=== PATIENT | male | born 1955 | race Caucasian/White ===

== ENCOUNTER 2020-10-04 13:47 | Emergency (ER) | payer OTHER, SELFPAY ==
--- NOTE | ~2020-10-04 | XR_ITS ---
EXAMINATION: XR FOOT, LEFT CLINICAL INFORMATION: Lateral pain left foot. Injury x2 days COMPARISON: None TECHNIQUE: AP, lateral, and oblique views of the left foot. FINDINGS: There is an oblique distal fifth metatarsal fracture with mild displacement. There is moderate distal dorsal foot soft tissue swelling. No other bony abnormality seen. XR/XR foot LT min 3V IMPRESSION: Oblique distal fifth metatarsal fracture with mild displacement and moderate dorsal distal foot soft tissue swelling.
[2020-10-04 14:22] VITALS: BP 169/88; PULSE 65; RESP 16; TEMP 36.4; O2SAT 98; BMI 25.7
--- NOTE | 2020-10-04 14:39 | ED_ITS ---
HPI - Extremity Injury (Lower) General Chief Complaint: Extremity Injury, Lower Time Seen by Provider: 10/04/20 14:38 Source: patient Mode of arrival: ambulatory History of Present Illness HPI Narrative: 65-year-old male with a past medical history of BPH presenting to the ED complaining of left foot pain and swelling s/p rolling foot while walking on the stairs yesterday morning. Denies numbness, tingling, weakness, head trauma, LOC MD complaint: foot injury Related Data Previous Rx's Medication Instructions Recorded ibuprofen 600 mg tablet 600 mg PO Q8H PRN #14 tab 10/04/20 oxycodone-acetaminophen 5 mg-325 1 tab PO Q6H PRN 3 Days #9 tab 10/04/20 mg tablet (Percocet) Allergies Allergy/AdvReac Type Severity Reaction Status Date / Time No Known Allergies Allergy Verified 10/04/20 14:00 Review of Systems Review of Systems: Constitutional: No Fever, No Chills Cardiovascular: No Chest Pain, No SOB Respiratory: No Cough Musculoskeletal: + joint pain, No Myalgias, + Joint Swelling Skin: No Skin Lesions, No rash Neuro: No Weakness, No Numbness, No Paresthesias Yes all other systems are reviewed and are negative [facility] Past Medical History Attestation statement: The following information was validated with the patient. Medical History (Updated 10/04/20 @ 14:45 by GOPAL Ford) Enlarged prostate Social History Social History Advance Directives: No Advance Directives Information Provided: No Physical Exam Vital Signs: Vital Signs: Last Vital Signs Temp 97.6 F 10/04/20 14:22 Pulse 65 10/04/20 14:22 Resp 16 10/04/20 14:22 BP 169/88 H 10/04/20 14:22 Pulse Ox 98 10/04/20 14:22 Body Mass Index 25.7 Const: General: cooperative and healthy appearing Orientation/consciousness: patient oriented x3 Limitations: no limitations HENMT: Head: Yes normal to inspection Ears: hearing grossly normal bilaterally General nose exam: Normal external nose present Face and sinus: Yes normal facial exam Eyes: General: appearance normal, both eyes and all related structures EOM: EOMs intact bilaterally Neck: Neck: Yes normal visual inspection Resp: Effort & Inspection: normal respiratory effort and no respiratory distress Cardio: Rate: regular rate Peripheral pulses: dorsalis pedis present Skin: Rashes: no rashes Wounds: no wounds Neuro: General: patient oriented x3 Gait exam (Neuro): Normal gait present Extrem: Other: Left ankle WNL. Nontender Left foot with notable swelling > to lateral aspect. Tender to palpation. Sensation intact to light touch. Neurovascularly intact. Course Course Course Narrative: XR foot LT min 3V IMPRESSION: Oblique distal fifth metatarsal fracture with mild displacement and moderate dorsal distal foot soft tissue swelling. >> results discussed with patient. Patient placed in posterior short-leg splint and supplied with crutches is to be nonweightbearing and follow up with Orthopedics MDM - Extremity Injury (Lower) MDM Narrative Medical decision making narrative: 65-year-old male with a past medical history of BPH presenting to the ED complaining of left foot pain and swelling s/p rolling foot while walking on the stairs yesterday morning. On exam VSS, NAD, physical exam as above. Concern for fracture. Plan: X-ray Medical Records Attestation: I reviewed the patient's medical records. Lab Data Attestation: I reviewed the patient's lab results. Discharge Plan Discharge Clinical Impression: Closed fracture of fifth metatarsal bone Qualifiers: Encounter type: initial encounter Fracture alignment: displaced Laterality: left Qualified Code(s): S92.352A - Displaced fracture of fifth metatarsal bone, left foot, initial encounter for closed fracture Patient Disposition: Home, Self-Care Instructions: Foot Fracture in Adults (ED) Additional Instructions: KEEP SPLINT ON, DRY, AND CLEAN DO NOT PUT ANY WEIGHT ON YOUR LEFT LEG YOU NEED TO FOLLOW-UP WITH THE DRUG ABUSE PROGRAM COORDINATOR IN 3-5 DAYS ICE AND ELEVATE YOUR FOOT TAKE TYLENOL AND MOTRIN FOR PAIN AND SWELLING PERCOCET IS AN OPIATE PAIN MEDICATION, TAKE WHEN PAIN IS SEVERE FOR THE NEXT 3 DAYS BE AWARE PERCOCET HAS TYLENOL MIXED IN, DO NOT EXCEED 4G OF TYLENOL AND 1 DAY IF YOUR TOES BECOME NUMB, DISCOLORED, PAIN BECOMES UNBEARABLE REMOVE SPLINT AND RETURN TO THE ED IMMEDIATELY Prescriptions: New oxycodone-acetaminophen [Percocet] 5-325 mg tablet 1 tab PO Q6H PRN (Reason: pain, severe) 3 Days Qty: 9 RF: 0 ibuprofen 600 mg tablet 600 mg PO Q8H PRN (Reason: pain) Qty: 14 RF: 0 Referrals: Karen Crook PA-C [Physician [employer]] - 5 days Stand Alone Forms: Work/School Release
[2020-10-04] MEDS: Acetaminophen 325 MG TABLET 650 MG PO (15:01)
== END 2020-10-04 15:40 | disposition home or self-care (01) ==
LOC: HO.ED 13:47
PROVIDERS: Emergency Provider Emergency Medicine; PCP Internal Medicine; Visit Provider Physician Assistant
DX: S92.352A Displaced fracture of fifth metatarsal bone, left foot, initial encounter for closed fracture (principal); M79.672 Pain in left foot; X50.1XXA Overexertion from prolonged static or awkward postures, initial encounter; Y93.9 Activity, unspecified; Y92.9 Unspecified place or not applicable; Y99.9 Unspecified external cause status; Z79.899 Other long term (current) drug therapy
CPT/HCPCS: 29515; 73630; 99283

== ENCOUNTER 2021-02-03 12:59 | Observation (INO) | payer OTHER, SELFPAY ==
--- NOTE | 2021-02-03 | ECG_ITS ---
Test Reason : CHEST PAIN Blood Pressure : / mmHG Vent. Rate : 067 BPM Atrial Rate : 067 BPM P-R Int : 158 ms QRS Dur : 096 ms QT Int : 412 ms P-R-T Axes : 051 020 057 degrees QTc Int : 435 ms Normal sinus rhythm Normal ECG No previous ECGs available Referred By: Generic ED Physician Electronically Signed By:OSMIN SIMEON MD
--- NOTE | ~2021-02-03 | XR_ITS ---
EXAMINATION: XR CHEST CLINICAL INFORMATION: Dyspnea COMPARISON: None TECHNIQUE: Frontal view of the chest was obtained. FINDINGS: No significant abnormality is noted involving the heart, lungs, mediastinum, bony thorax or soft tissues. Left base atelectasis or scarring is present. XR/XR chest 1V IMPRESSION: No significant acute parenchymal disease.
[2021-02-03 13:29] VITALS: BP 138/84; PULSE 92; RESP 8; TEMP 36.6; O2SAT 96; BMI 26.7
--- NOTE | 2021-02-03 13:31 | ED_ITS ---
HPI - Chest Pain General Chief Complaint: Chest Pain Stated Complaint: chest pain Time Seen by Provider: 02/03/21 13:31 Source: patient Mode of arrival: ambulatory Limitations: no limitations History of Present Illness MD complaint: chest pain Pertinent past history: prior DC Onset (ago): day(s) (last night around 10pm) Timing of current episode: constant Prior episodes: No Onset: during rest Pain location: substernal Pain radiation: none Severity: mild Quality: aching and heaviness Relieving factors: nothing Exacerbating factors: nothing Associated symptoms: dyspnea Treatment prior to arrival: none Related Data Previous Rx's Medication Instructions Recorded ibuprofen 600 mg tablet 600 mg PO Q8H PRN #14 tab 10/04/20 oxycodone-acetaminophen 5 mg-325 1 tab PO Q6H PRN 3 Days #9 tab 10/04/20 mg tablet (Percocet) Allergies Allergy/AdvReac Type Severity Reaction Status Date / Time No Known Allergies Allergy Verified 10/04/20 14:00 Review of Systems Review of Systems: Constitutional : No Weight loss, No Fever, No Chills ENT/Mouth : No sore throat, No Rhinorrhea Eyes: No Eye Pain, No Swelling Cardiovascular : pos Chest Pain, pos SOB, no Dyspnea on Exertion, No Orthopnea, No Edema, No Palpitations Respiratory : No Cough, No Sputum Gastrointestinal : no Nausea, No Vomiting, No Diarrhea, No abdominal Pain, No Hematochezia, No Melena Genitourinary : No Dysuria, No Urinary Frequency Musculoskeletal : No joint pain, No Myalgias, No Joint Swelling Skin : No Skin Lesions, No rash Neuro : No Weakness, No Numbness, No Dizziness, No Headache Psych : No Anxiety/Panic, No Depression Heme/Lymph: No Bruising, No Lymphadenopathy Endocrine : No Polyuria, No Polydipsia All other systems reviewed and are negative PMFSH Past Medical History Medical History Enlarged prostate Hyperlipidemia Myocardial infarction Social History Social History (Updated 02/03/21 @ 14:16 by Niki Maria DO) Patient Tobacco Use Status: Never used Tobacco Use of substances other than those prescribed or required for medical reasons: No Advance Directives: No Advance Directives Information Provided: No Physical Exam Vital Signs: Vital Signs: Last Vital Signs Temp 98 F 02/03/21 13:29 Pulse 68 02/03/21 14:30 Resp 16 02/03/21 14:30 BP 143/85 H 02/03/21 14:30 Pulse Ox 96 02/03/21 14:30 BMI result Body Mass Index 26.7 Appearance: Alert. Oriented X3. No acute distress. Eyes: Pupils equal, round and reactive to light. ENT: Pharynx normal. Neck: Normal inspection. Neck supple. CVS: Normal heart rate and rhythm. Pulses normal. Respiratory: No respiratory distress. Breath sounds slightly diminished. Abdomen: Soft and non-tender. Skin: Skin warm and dry. Normal skin color. Normal skin turgor. Extremities: No lower extremity edema. No calf ttp Neuro: Oriented X 3. No motor deficit. No sensory deficit. Course Course Course Narrative: repeat troponin pending - 430pm nitro resolved pain. Dr. Lin notified signed out to Georges HERRON pending repeat troponin, plan is for admission MDM - Chest Pain MDM Narrative Medical decision making narrative: 65 yo male with hx of HLD, asthma, prior DC at age 38 did not require stenting here with shortness of breath, chest pain since last night - his daughter in law has COVID but he does not think he was exposed. At this time troponin, EKG, ddimer, CXR ordered, aspirin and nitro for chest discomfort. Could be PE, ACS, COVID. dispo per results and findings Lab Data Result diagrams: 02/03/21 14:26 02/03/21 14:26 Labs: Lab Results 02/03/21 02/03/21 02/03/21 Range/Units 14:06 14:26 14:26 WBC 6.8 (4.8-10.8) X10*3/uL RBC 5.19 (4.60-5.80) X10*6/uL Hgb 15.1 (14.0-18.0) g/dl Hct 45.8 (42.0-52.0) % MCV 88.2 (80.0-98.0) fL MCH 29.1 (27.0-33.0) pg MCHC 33.0 (31.0-36.0) g/dl RDW 12.8 (11.0-16.0) % Plt Count 222 (160-400) X10*3/uL MPV 10.3 (9.4-12.4) fL Immature Gran % (Auto) 0.4 (0.0-0.4) % Neut % (Auto) 72.6 (45-73) % Lymph % (Auto) 15.8 L (20-40) % [place] % (Auto) 6.4 (2-11) % Eos % (Auto) 4.2 H (0-4) % Baso % (Auto) 0.6 (0-2) % Lymph # (Auto) 1.1 L (1.2-4.9) X10*3/uL [place] # (Auto) 0.4 (0.1-1.2) X10*3/uL Eos # (Auto) 0.3 (0.0-0.4) X10*3/uL Baso # (Auto) 0.0 (0.0-0.2) X10*3/uL Abs Immat Gran (auto) 0.03 (0.00-0.03) X10*3/uL Absolute Neuts (auto) 5.0 (2.0-8.3) x10*3/uL Absolute Nucleated RBC 0.000 (0.0-0.012) X10*3/uL Nucleated RBC % (auto) 0.0 (0.0-0.2) /100WBC D-Dimer High Sensitivty 216 NG/ML Sodium (135-145) mmol/L Potassium (3.3-5.1) mmol/L Chloride (96-108) mmol/L Carbon Dioxide (22-29) mmol/L Anion Gap (12-20) BUN (9-16) mg/dL Creatinine (0.5-1.4) mg/dL Estim Creat Clear Calc Estimated GFR Random Glucose (60-115) mg/dL Calcium (8.4-10.2) mg/dL Magnesium (1.6-2.6) mg/dL Total Bilirubin (0.0-1.0) mg/dL Direct Bilirubin (0.0-0.5) mg/dL AST (5-37) U/L ALT (0-40) U/L Alkaline Phosphatase (39-117) U/L Troponin I High Sens (<3.5-35.0) ng/L B-Natriuretic Peptide (<100) pg/mL Total Protein (6.5-8.0) g/dL Albumin (3.5-5.0) g/dL Influenza Type A (PCR) NEGATIVE (Negative) Influenza Type B (PCR) NEGATIVE (Negative) RSV RNA Qual (PCR) NEGATIVE (Negative) SARS-CoV-2 RNA (RT-PCR) NEGATIVE (Negative) 02/03/21 02/03/21 Range/Units 14:26 14:26 WBC (4.8-10.8) X10*3/uL RBC (4.60-5.80) X10*6/uL Hgb (14.0-18.0) g/dl Hct (42.0-52.0) % MCV (80.0-98.0) fL MCH (27.0-33.0) pg MCHC (31.0-36.0) g/dl RDW (11.0-16.0) % Plt Count (160-400) X10*3/uL MPV (9.4-12.4) fL Immature Gran % (Auto) (0.0-0.4) % Neut % (Auto) (45-73) % Lymph % (Auto) (20-40) % [place] % (Auto) (2-11) % Eos % (Auto) (0-4) % Baso % (Auto) (0-2) % Lymph # (Auto) (1.2-4.9) X10*3/uL [place] # (Auto) (0.1-1.2) X10*3/uL Eos # (Auto) (0.0-0.4) X10*3/uL Baso # (Auto) (0.0-0.2) X10*3/uL Abs Immat Gran (auto) (0.00-0.03) X10*3/uL Absolute Neuts (auto) (2.0-8.3) x10*3/uL Absolute Nucleated RBC (0.0-0.012) X10*3/uL Nucleated RBC % (auto) (0.0-0.2) /100WBC D-Dimer High Sensitivty NG/ML Sodium 141 (135-145) mmol/L Potassium 4.6 (3.3-5.1) mmol/L Chloride 106 (96-108) mmol/L Carbon Dioxide 26 (22-29) mmol/L Anion Gap 14 (12-20) BUN 15 (9-16) mg/dL Creatinine 0.84 (0.5-1.4) mg/dL Estim Creat Clear Calc 90.8 Estimated GFR > 60 Random Glucose 88 (60-115) mg/dL Calcium 9.3 (8.4-10.2) mg/dL Magnesium 2.1 (1.6-2.6) mg/dL Total Bilirubin 0.5 (0.0-1.0) mg/dL Direct Bilirubin 0.2 (0.0-0.5) mg/dL AST 35 (5-37) U/L ALT 42 H (0-40) U/L Alkaline Phosphatase 74 (39-117) U/L Troponin I High Sens < 3.5 (<3.5-35.0) ng/L B-Natriuretic Peptide 24 (<100) pg/mL Total Protein 7.1 (6.5-8.0) g/dL Albumin 4.3 (3.5-5.0) g/dL Influenza Type A (PCR) (Negative) Influenza Type B (PCR) (Negative) RSV RNA Qual (PCR) (Negative) SARS-CoV-2 RNA (RT-PCR) (Negative) ECG Data ECG #1: Attestation: I personally reviewed and interpreted this ECG as follows: ECG interpretation date: 02/03/21 ECG interpretation time: 13:33 Interpretation: Rate: 67 Rhythm: NSR [place]: normal Normal P waves. Normal DOC. Normal QRS complex. ST T wave : normal no STELLA qTC: normal prior studies: no acute ischemia The study has been interpreted contemporaneously by me. Discharge Plan Discharge Clinical Impression: Chest pain Qualifiers: Chest pain type: precordial pain Qualified Code(s): R07.2 - Precordial pain Patient Disposition: Admitted As Inpatient
[2021-02-03] MEDS: Nitroglycerin 0.4 MG TAB.SUBL SUBLINGUAL (14:27)
[2021-02-03] MEDS: 0.9 % Sodium Chloride 500 ML IV (14:28)
[2021-02-03] MEDS: Aspirin 81 MG TAB.CHEW PO (14:28)
[2021-02-03 14:30] VITALS: BP 143/85; PULSE 68; RESP 16; O2SAT 96
[2021-02-03 14:37] LABS: MANUAL DIFF FLAG NO
[2021-02-03 14:38] LABS: Basophils Percent Auto 0.6 % (0-2); Eosinophils Absolute Auto 0.3 X10*3/uL (0.0-0.4); Eosinophils Percent Auto 4.2 % (0-4); Hematocrit 45.8 % (42.0-52.0); Hemoglobin 15.1 g/dl (14.0-18.0); Imm Gran Abs Auto 0.03 X10*3/uL (0.00-0.03); Imm Gran Pct Auto 0.4 % (0.0-0.4); Lymphocytes Absolute Auto 1.1 X10*3/uL (1.2-4.9); Lymphocytes Percent Auto 15.8 % (20-40); Mean Corpuscular Hemoglobin 29.1 pg (27.0-33.0); Mean Corpuscular Volume 88.2 fL (80.0-98.0); Mean Platelet Volume 10.3 fL (9.4-12.4); Monocytes Absolute Auto 0.4 X10*3/uL (0.1-1.2); Monocytes Percent Auto 6.4 % (2-11); Neutrophils Percent Auto 72.6 % (45-73); Platelet Count 222 X10*3/uL (160-400); Red Blood Count 5.19 X10*6/uL (4.60-5.80); Red Cell Distribution Width 12.8 % (11.0-16.0); White Blood Count 6.8 X10*3/uL (4.8-10.8)
[2021-02-03 14:54] LABS: D Dimer High Sensitivity 216 NG/ML
[2021-02-03 15:06] LABS: B Type Natriuretic Peptide 24 pg/mL (<100); Troponin-I High Sensitivity < 3.5 ng/L (<3.5-35.0)
[2021-02-03 15:10] LABS: Influenza A PCR NEGATIVE (Negative); Influenza B PCR NEGATIVE (Negative); Resp Syncy Virus RNA Qual PCR NEGATIVE (Negative); SARS COV2 PCR INHOUSE NEGATIVE (Negative)
[2021-02-03 15:11] LABS: Alanine Aminotransferase 42 U/L (0-40); Albumin Level 4.3 g/dL (3.5-5.0); Alkaline Phosphatase 74 U/L (39-117); Anion Gap 14 (12-20); Aspartate Amino Transferase 35 U/L (5-37); Bilirubin Direct 0.2 mg/dL (0.0-0.5); Bilirubin Total 0.5 mg/dL (0.0-1.0); Blood Urea Nitrogen 15 mg/dL (9-16); Calcium 9.3 mg/dL (8.4-10.2); Carbon Dioxide 26 mmol/L (22-29); Chloride 106 mmol/L (96-108); Creatinine Clr Calc Pharmacy 90.8; Estimated Glomerular Filt Rate > 60; Glucose Random 88 mg/dL (60-115); Magnesium 2.1 mg/dL (1.6-2.6); Potassium 4.6 mmol/L (3.3-5.1); Sodium 141 mmol/L (135-145); Total Protein 7.1 g/dL (6.5-8.0)
[2021-02-03 16:45] VITALS: BP 154/92; PULSE 65; RESP 14; TEMP 36.6; O2SAT 98
[2021-02-03 17:44] LABS: Troponin-I High Sensitivity < 3.5 ng/L (<3.5-35.0)
--- NOTE | 2021-02-03 18:43 | P.HPHOSP_ITS ---
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 The chest discomfort was burning in nature like my chest was on fire but not associated with diaphoresis and not radiating. It was moderate in intensity and not at all like the chrushing chest pain he experienced with his prior MN, but also not at all like his episodes of esophageal spasm. No acid reflux, though he has suffered this in the past. He was able to go back to sleep and when he next awoke around 3am, the pain was around 3/10 in intensity. He had a dull ache all day in his chest and decided to present to the ED, where he was given nitroglycerin with near-complete relief of his pain. 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 He last had a stress test some 5 years ago. 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 In the ED, EKG showed normal sinus rhythm with no ischemic changes. D-dimer was 216. High-sensitivity troponin-I was negative twice. BNP was 24. CXR was negative for acute disease. Review of Systems Review of Systems: Yes all other systems are reviewed and are negative [facility] Medical History (Updated 02/03/21 @ 18:50 by Guillermo Rondon MD) Enlarged prostate Esophageal spasm Hyperlipidemia Myocardial infarction Severe persistent allergic asthma Functional capacity: independent ambulation Pertinent family history: Negative for CAD, CVA, or DM2. Both parents lived into their 90s. Surgical History (Updated 02/03/21 @ 18:50 by Guillermo Rondon MD) History of cystoscopy Status post tendon repair Social History Patient Tobacco Use Status: Never used Tobacco Use of substances other than those prescribed or required for medical reasons: No Advance Directives: No Advance Directives Information Provided: No Meds Allergies Allergy/AdvReac Type Severity Reaction Status Date / Time No Known Allergies Allergy Verified 10/04/20 14:00 Active Medications: Current Medications Acetaminophen (Acetaminophen 325 Mg Tablet) 650 mg PO Q6H PRN PRN Reason: Pain, Mild (Pain Scale 1-3) Aspirin (Aspirin 81 Mg Tab.Chew) 81 mg PO DAILY [facility] Atorvastatin Calcium (Atorvastatin Calcium 80 Mg Tablet) 80 mg PO BEDTIME [facility] Enoxaparin Sodium (Enoxaparin Sodium 40 Mg/0.4 Ml Syringe) 40 mg SUBCUT Q24H [facility] Morphine Sulfate (Morphine Sulfate 2 Mg/Ml Cartridge) 2 mg IVPUSH Q2H PRN; Protocol PRN Reason: severe pain Nitroglycerin (Nitroglycerin 0.4 Mg Tab.Subl) 0.4 mg SUBLINGUAL Q5MX3 PRN PRN Reason: Chest Pain Ondansetron HCl (Ondansetron Hcl 4 Mg/2 Ml Vial) 4 mg IVPUSH Q8H PRN PRN Reason: nausea/vomiting Pharmacy Consult (Consult Rx Perform Med Rec) 1 each MISCELLANE STAT STA Stop: 02/03/21 17:59 Sodium Chloride (0.9 % Sodium Chloride Flush 3 Ml Syringe) 3 ml IVFLUSH QSHIFT [facility] Home Medications Medication Instructions Recorded Confirmed Last Taken Type ascorbic acid (vitamin C) 500 mg 500 mg PO DAILY 02/03/21 02/03/21 01/31/21 History tablet (Vitamin C) cholecalciferol (vitamin D3) 50 2,000 mcg PO DAILY 02/03/21 02/03/21 01/31/21 History mcg (2,000 unit) capsule (Vitamin D3) dupilumab 300 mg/2 mL subcutaneous 300 mg SUBCUT Q2W 02/03/21 02/03/21 01/31/21 History syringe (Dupixent) finasteride 5 mg tablet 1 tab PO DAILY 02/03/21 02/03/21 Unknown History multivitamin 1 tab PO DAILY 02/03/21 02/03/21 01/31/21 History tadalafil 5 mg tablet 5 mg PO DAILY 02/03/21 02/03/21 01/31/21 History Physical Exam Vital Signs and Narrative: Vital Signs: Last Vital Signs Temp 98 F 02/03/21 16:45 Pulse 65 02/03/21 16:45 Resp 14 02/03/21 16:45 BP 154/92 H 02/03/21 16:45 Pulse Ox 98 02/03/21 16:45 BMI result Body Mass Index 26.7 Gen: in no acute distress HEENT: sclera anicteric, moist mucus membranes Neck: supple Lungs: clear to auscultation bilaterally Heart: regular rate and rhythm, no murmurs Abd: soft, non-tender, non-distended Ext: no edema Skin: warm/well-perfused Neuro: alert and oriented x3, no focal findings Psych: appropriate affect Results Labs CBC and Chem 7: 02/03/21 14:26 02/03/21 14:26 Labs: Laboratory Results - last 24 hr 02/03/21 02/03/21 02/03/21 14:06 14:26 14:26 MCV 88.2 MCH 29.1 MCHC 33.0 RDW 12.8 Plt Count 222 MPV 10.3 Immature Gran % (Auto) 0.4 Neut % (Auto) 72.6 Lymph % (Auto) 15.8 L [place] % (Auto) 6.4 Eos % (Auto) 4.2 H Baso % (Auto) 0.6 Lymph # (Auto) 1.1 L [place] # (Auto) 0.4 Eos # (Auto) 0.3 Baso # (Auto) 0.0 Abs Immat Gran (auto) 0.03 Absolute Neuts (auto) 5.0 Absolute Nucleated RBC 0.000 Nucleated RBC % (auto) 0.0 D-Dimer High Sensitivty 216 Anion Gap Estim Creat Clear Calc Estimated GFR Random Glucose Calcium Magnesium Total Bilirubin Direct Bilirubin AST ALT Alkaline Phosphatase Troponin I High Sens B-Natriuretic Peptide Total Protein Albumin Influenza Type A (PCR) NEGATIVE Influenza Type B (PCR) NEGATIVE RSV RNA Qual (PCR) NEGATIVE SARS-CoV-2 RNA (RT-PCR) NEGATIVE 02/03/21 02/03/21 02/03/21 14:26 14:26 16:44 MCV MCH MCHC RDW Plt Count MPV Immature Gran % (Auto) Neut % (Auto) Lymph % (Auto) [place] % (Auto) Eos % (Auto) Baso % (Auto) Lymph # (Auto) [place] # (Auto) Eos # (Auto) Baso # (Auto) Abs Immat Gran (auto) Absolute Neuts (auto) Absolute Nucleated RBC Nucleated RBC % (auto) D-Dimer High Sensitivty Anion Gap 14 Estim Creat Clear Calc 90.8 Estimated GFR > 60 Random Glucose 88 Calcium 9.3 Magnesium 2.1 Total Bilirubin 0.5 Direct Bilirubin 0.2 AST 35 ALT 42 H Alkaline Phosphatase 74 Troponin I High Sens < 3.5 < 3.5 B-Natriuretic Peptide 24 Total Protein 7.1 Albumin 4.3 Influenza Type A (PCR) Influenza Type B (PCR) RSV RNA Qual (PCR) SARS-CoV-2 RNA (RT-PCR) Imaging Radiologist's Impressions: Impressions Chest X-Ray 02/03/21 14:00 IMPRESSION: No significant acute parenchymal disease. 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 No EKG changes and troponin-I x2 negative - admit to [facility] under observation, Cardiology consult, ASA/high-intensity statin, TTE, to consider inpt stress testing given risk factors - other medical issues: CPAP for POP, finasteride for BPH - LMWH for VTE ppx Quality Stroke Does the patient have a stroke diagnosis?: No VTE Prior VTE?: No VTE Risk Level:: Medical - moderate - high VTE Device Contraindication: N/A - Device Ordered VTE Drug Contraindication: N/A - Med Ordered
[2021-02-03 19:08] VITALS: BP 142/79; PULSE 74; RESP 16; TEMP 36.8; O2SAT 97
--- NOTE | 2021-02-03 19:28 | PHA.MEDREC ---
Pharmacy Consult ? Medication Reconciliation Pharmacy has completed the medication reconciliation.
[2021-02-03 20:00] VITALS: BP 136/82; PULSE 76; RESP 14; TEMP 36.8; O2SAT 98
--- NOTE | 2021-02-03 20:40 | PC.NURSE ---
Patient complained of pain in his left ear which radiated down into his neck
[2021-02-03] MEDS: Acetaminophen 325 MG TABLET 650 MG PO (20:53)
[2021-02-03] MEDS: Atorvastatin Calcium 80 MG TABLET PO (20:53)
[2021-02-03] MEDS: Enoxaparin Sodium 40 MG/0.4 ML SYRINGE SUBCUT (20:54)
[2021-02-04 01:08] VITALS: BP 137/84; PULSE 72; RESP 16; TEMP 36.4; O2SAT 98
--- NOTE | 2021-02-04 07:30 | CA_ITS ---
Transthoracic Echocardiogram Patient (Last, First, Middle): Luis Davis, Gender: Male Date of : 1955 Age: 65 Procedure Date: 02/04/2021 Procedure Type: Transthoracic Echocardiogram Location: ER Height: 180.34 cm Weight: 87.09 kg BSA: 2.07 m2 Heart Rate: bpm BP: 137 / 84 mmHg Clock And Watch Hands Dipper: JANI Kaufman MD: Guillermo Rondon MD Bleach Packer: Herminio Lin MD Symptoms: chest pain Study Quality: Fair ECG Rhythm: Sinus Conclusions: - 1. Normal LV systolic function with grade 1 diastolic dysfunction with underlying wall motion abnormality suggestive of CAD 2. Normal cardiac valvular Doppler 3. Normal RV systolic pressure 4. No pericardial effusion Findings Left Ventricle Normal left ventricular size, thickness, and systolic function. There is evidence of regional wall motion abnormalities. Spectral Doppler is indicative of an impaired relaxation filling pattern. E/E prime ratio is <8, consistent with normal filling pressures. Evidence suggests grade I (mild) diastolic dysfunction. There is mild septal asymmetric hypertrophy. Wall Motion Rest Echo Findings The basal anterolateral and basal inferolateral segments are akinetic. All other scored wall segments showed normal motion. Right Ventricle Normal right ventricular cavity size and systolic function. Atria The left atrium is likely dilated. Interatrial shunt cannot be excluded. The right atrium is normal in size. Aortic Valve Normal aortic valve structure and function. There is no aortic valve stenosis. There is no aortic valve regurgitation. Mitral Valve Normal mitral valve structure and function. There is trace mitral valve regurgitation. There is no mitral valve stenosis. Pulmonic Valve The pulmonic valve was not well visualized. Tricuspid Valve Likely normal tricuspid valve structure and function. There is trace tricuspid valve regurgitation. The right ventricular systolic pressure is normal. The right ventricular systolic pressure is 25 mmHg. Normal right atrial pressure. There is no evidence of pulmonary hypertension. Great Vessels All visible segments of the aorta are normal in size. The pulmonary artery was not well visualized. Venous The inferior vena cava is normal in size and collapses greater than 50% with inspiration. Pericardium/Pleural There is no evidence of pericardial effusion. Prior Study Comparison No prior study available for comparison. Measurements 2D Linear Measurements IVSd: 1.24 0.6-0.9/0.6-1.0 cm LVIDd: 4.55 3.9-5.3/4.2-5.9 cm LVIDd Index: 2.20 2.4-3.2/2.2-3.1 cm/m2 LVIDs: 3.22 2.0-3.6 cm LVPWd: 0.92 0.7-1.1 cm Ao Root: 3.70 2.1-3.5 cm LA Diam: 3.80 2.7-3.8/3.0-4.0 cm LAIDs Index: 1.84 1.5-2.3 cm/m2 LV Mass: 216.65 67-162/88-224 g LV Mass Index: 104.66 43-95/49-115 g/m2 LVOT Diam: 2.30 3.0+(-)1.3 cm 2D Systolic Function EF 4C: 55.90 >55% EF 2C: 63.00 >55% EF BiP: 58.20 >55% Mitral Valve MV Pk E: 0.51 MV PK A: 0.66 MV Decel Time: 254.00 E/A: 0.80 E'Lateral: 11.60 E'Medial: 4.90 E/E' Med: 10.50 E/E' Lat: 4.40 PHT: 74.00 MVA PHT: 2.97 Decel [place]: 2.02 Aortic Valve AoV Pk Omar: 1.43 AoV Mn Omar: 1.01 AoV VTI: 0.26 AoV Pk Grad: 8.00 Aov Mn Grad: 5.00 GONZALEZ Cont.VTI: 3.23 LVOT LVOT Pk Omar: 1.03 LVOT Mn Omar: 0.64 LVOT VTI: 0.20 LVOT Pk Grad: 4.00 LVOT Mn Grad: 2.00 LVOT Diam: 2.30 LVOT Area: 4.15 Diastolic Function MV Pk E: 0.51 MV Pk A: 0.66 E/A: 0.80 E'Medial: 4.90 E/E' Med: 10.50 E' Laterial: 11.60 E/E' Lat: 4.40 Right Ventricle TAPSE (mm): 2.35 TVS' Omar: 14.90 Tricuspid Valve TR Pk Omar: 2.35 TR Pk Grad: 22.00 RA Press: 3.00 RVSP: 25.00 Great Vessels Aorta Ao Root-2D: 3.70 2.0-3.7 cm Ao Asc: 3.40 2.1-3.4 cm Updated in Other Vendor System with Status of Final Herminio Lin MD electronically signed on 02/04/2021 3:22:47 PM with status of Final
[2021-02-04 08:06] LABS: Cholesterol 257 mg/dL; HDL Cholesterol 45 mg/dL; LDL Cholesterol Calculated 190 mg/dl; Triglycerides 111 mg/dL
[2021-02-04 08:17] LABS: Estimated Average Glucose 114 mg/dL; Hemoglobin A1c % 5.6 %
[2021-02-04 09:36] VITALS: BP 142/79; PULSE 70; RESP 16; O2SAT 95
[2021-02-04] MEDS: Multivitamin TABLET 1 TAB PO (09:38)
[2021-02-04] MEDS: Ascorbic Acid 500 MG TABLET PO (09:38)
[2021-02-04] MEDS: Cholecalciferol (Vitamin D3) 25 MCG TABLET 50 MCG PO (09:38)
[2021-02-04] MEDS: Aspirin 81 MG TAB.CHEW PO (09:38)
[2021-02-04] MEDS: Finasteride 5 MG TABLET PO (09:44)
[2021-02-04] MEDS: 0.9 % Sodium Chloride Flush 3 ML SYRINGE IVFLUSH ×2 (09:45→14:38)
--- NOTE | 2021-02-04 09:52 | MHC.CM.PN ---
pt lives c his in their home . he reports that he is independent in his care. 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 pt denies the need for vna at dc. the dc plan at this time is to return home no svcs. his will provide transportation. cm to cont. to follow.
--- NOTE | 2021-02-04 10:23 | PM.CNCAR ---
History of Present Illness History of Present Illness Date of Service: 02/04/21 Requesting physician: Guillermo Rondon Consult reason: chest pain Chief complaint: chest pain Narrative: I was requested to see Luis in cardiology consultation today for chest pain. He is a 65-year-old male with prior history of posterior myocardial infarction in 1998. This was treated conservatively. Symptoms at that time include severe chest pain, pounding in nature. He ended up going to the emergency room at [facility] and initially was treated with morphine and there was a misdiagnosis of myocardial infarction was diagnosed subsequently based on enzymes. However given his delayed diagnosis, he did not undergo interventional therapy at that point time. He was then treated with medical therapy and was taking his medications up to about a year ago when he developed eczema. He said he has not had any lipid panel performed. He is off statins for about a year. He does take an aspirin every day. No active cardiac medication at this point time. Has not seen primary care physician for some time. 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 He says for about a year he has been noticing exertional shortness of breath especially when he walks 50 yd carrying a load. This symptom has been bothering him. No orthopnea, PND, leg edema. Yesterday he developed retrosternal chest discomfort which got him concerned. He then his try to relax. However whole day yesterday he had dull ache persistent in the precordial area and therefore decided to come to the emergency room. He said he did get sublingual nitroglycerin and symptoms resolved. This symptoms however he says at different from his myocardial infarction pain and also different compared to his esophageal motility disorder discomfort. He came in his EKG shows no acute ischemic changes. There is some transition from V1 to V2 which may suggest posterior WA, old. His troponin x2 have been negative less than 3.5. He is currently chest pain-free. Review of Systems Constitutional: Constitutional: Reports no additional constitutional complaints Eyes: Eyes: Reports no additional eye complaints Cardiovascular: Cardiovascular: Reports chest pain, Denies leg edema, Denies lightheadedness, Denies Loss of Consciousness, Denies palpitations and Reports dyspnea on exertion Respiratory: Respiratory: Reports no additional respiratory complaints and Reports dyspnea on exertion Gastrointestinal: Gastrointestinal: Reports no additional gastrointestinal complaints Genitourinary: Genitourinary: Reports no additional male genitourinary complaints Musculoskeletal: Musculoskeletal: Reports no additional musculoskeletal complaints Integumentary/Breasts: Skin/Breast: Reports system reviewed and no additional complaints, except as docu Neurologic: Reports system reviewed and no additional complaints, except as documented Psychiatric: Psychiatric: Reports no additional psychiatric complaints Endocrine: Endocrine: Reports no additional endocrine complaints and Denies palpitations Hematologic/Lymphatic: Hematologic/Lymphatic: Reports no additional hematologic/lymphatic complaints Allergic/Immunologic: Allergic/Immunologic: Reports no additional allergic/immunologic complaints [facility] Past Medical History Medical History (Updated 02/04/21 @ 10:28 by Herminio Lin MD) CAD (coronary artery disease) Enlarged prostate Esophageal spasm Hyperlipidemia Myocardial infarction Severe persistent allergic asthma Functional capacity: independent ambulation Surgical History Surgical History History of cystoscopy Status post tendon repair Social History Social History Patient Tobacco Use Status: Never used Tobacco Use of substances other than those prescribed or required for medical reasons: No Advance Directives: No Advance Directives Information Provided: No service: No Current occupational status: employed Meds Allergies Allergy/AdvReac Type Severity Reaction Status Date / Time No Known Allergies Allergy Verified 10/04/20 14:00 Active Medications: Current Medications Acetaminophen (Acetaminophen 325 Mg Tablet) 650 mg PO Q6H PRN PRN Reason: Pain, Mild (Pain Scale 1-3) Last Admin: 02/03/21 20:53 Dose: 650 mg Documented by: Ascorbic Acid (Ascorbic Acid 500 Mg Tablet) 500 mg PO DAILY [facility] Last Admin: 02/04/21 09:38 Dose: 500 mg Documented by: Aspirin (Aspirin 81 Mg Tab.Chew) 81 mg PO DAILY [facility] Last Admin: 02/04/21 09:38 Dose: 81 mg Documented by: Atorvastatin Calcium (Atorvastatin Calcium 80 Mg Tablet) 80 mg PO BEDTIME [facility] Last Admin: 02/03/21 20:53 Dose: 80 mg Documented by: Enoxaparin Sodium (Enoxaparin Sodium 40 Mg/0.4 Ml Syringe) 40 mg SUBCUT Q24H [facility] Last Admin: 02/03/21 20:54 Dose: 40 mg Documented by: Finasteride (Finasteride 5 Mg Tablet) 5 mg PO DAILY [facility] Last Admin: 02/04/21 09:44 Dose: 5 mg Documented by: Morphine Sulfate (Morphine Sulfate 2 Mg/Ml Cartridge) 2 mg IVPUSH Q2H PRN; Protocol PRN Reason: severe pain Multivitamins/Vitamin C (Multivitamin Tablet) 1 tab PO DAILY [facility] Last Admin: 02/04/21 09:38 Dose: 1 tab Documented by: Nitroglycerin (Nitroglycerin 0.4 Mg Tab.Subl) 0.4 mg SUBLINGUAL Q5MX3 PRN PRN Reason: Chest Pain Ondansetron HCl (Ondansetron Hcl 4 Mg/2 Ml Vial) 4 mg IVPUSH Q8H PRN PRN Reason: nausea/vomiting Sodium Chloride (0.9 % Sodium Chloride Flush 3 Ml Syringe) 3 ml IVFLUSH QSHIFT [facility] Last Admin: 02/04/21 09:45 Dose: 3 ml Documented by: Vitamin D (Cholecalciferol (Vitamin D3) 25 Mcg Tablet) 2,000 mcg PO DAILY [facility] Last Admin: 02/04/21 09:39 Dose: Not Given Documented by: Vitamin D (Cholecalciferol (Vitamin D3) 25 Mcg Tablet) 50 mcg PO DAILY [facility] Last Admin: 02/04/21 09:38 Dose: 50 mcg Documented by: Home Medications Medication Instructions Recorded Confirmed Last Taken Type ascorbic acid (vitamin C) 500 mg 500 mg PO DAILY 02/03/21 02/03/21 01/31/21 History tablet (Vitamin C) cholecalciferol (vitamin D3) 50 2,000 unit PO DAILY 02/03/21 02/04/21 01/31/21 History mcg (2,000 unit) capsule (Vitamin D3) dupilumab 300 mg/2 mL subcutaneous 300 mg SUBCUT Q2W 02/03/21 02/03/21 01/31/21 History syringe (Dupixent) finasteride 5 mg tablet 1 tab PO DAILY 02/03/21 02/03/21 Unknown History multivitamin 1 tab PO DAILY 02/03/21 02/03/21 01/31/21 History tadalafil 5 mg tablet 5 mg PO DAILY 02/03/21 02/03/21 01/31/21 History Physical Exam Vital Signs: Vital Signs: Last Vital Signs Temp 97.6 F 02/04/21 01:08 Pulse 70 02/04/21 09:36 Resp 16 02/04/21 09:36 BP 142/79 H 02/04/21 09:36 Pulse Ox 95 02/04/21 09:36 BMI result Body Mass Index 26.7 Const: General: cooperative, comfortable, no acute distress, alert and awake Nutritional Appearance: average body habitus Orientation/consciousness: patient oriented x3 Limitations: no limitations HENMT: Head: Yes normocephalic and Yes atraumatic Neck: Neck: Yes trachea midline, Yes supple and Yes no JVD Chest: Chest palpation & inspection: normal inspection of the chest Resp: Effort & Inspection: normal respiratory effort Auscultation: clear to auscultation bilaterally Cardio: Jugular venous distension: no JVD Palpation: normal PMI Rate: regular rate Rhythm: regular rhythm Heart sounds: S1 normal heart sound present, S2 normal heart sound present, no click, no gallops, no murmurs and no rubs GI: Auscultation: normal bowel sounds Skin: General skin exam: no rashes or lesions noted Neuro: General: patient oriented x3 and no focal motor deficits Extrem: General: Yes no clubbing, cyanosis or edema Psych: Appearance: grossly normal Objective Labs and Meds Result diagrams: 02/03/21 14:26 02/03/21 14:26 Lab results: Laboratory Results - last 24 hr 02/03/21 02/03/21 02/03/21 14:06 14:26 14:26 WBC 6.8 RBC 5.19 Hgb 15.1 Hct 45.8 MCV 88.2 MCH 29.1 MCHC 33.0 RDW 12.8 Plt Count 222 MPV 10.3 Immature Gran % (Auto) 0.4 Neut % (Auto) 72.6 Lymph % (Auto) 15.8 L [place] % (Auto) 6.4 Eos % (Auto) 4.2 H Baso % (Auto) 0.6 Lymph # (Auto) 1.1 L [place] # (Auto) 0.4 Eos # (Auto) 0.3 Baso # (Auto) 0.0 Abs Immat Gran (auto) 0.03 Absolute Neuts (auto) 5.0 Absolute Nucleated RBC 0.000 Nucleated RBC % (auto) 0.0 D-Dimer High Sensitivty 216 Sodium Potassium Chloride Carbon Dioxide Anion Gap BUN Creatinine Estim Creat Clear Calc Estimated GFR Random Glucose Estimat Average Glucose Hemoglobin A1c % Calcium Magnesium Total Bilirubin Direct Bilirubin AST ALT Alkaline Phosphatase Troponin I High Sens B-Natriuretic Peptide Total Protein Albumin Triglycerides Cholesterol LDL Cholesterol, Calc HDL Cholesterol Influenza Type A (PCR) NEGATIVE Influenza Type B (PCR) NEGATIVE RSV RNA Qual (PCR) NEGATIVE SARS-CoV-2 RNA (RT-PCR) NEGATIVE 02/03/21 02/03/21 02/03/21 14:26 14:26 16:44 WBC RBC Hgb Hct MCV MCH MCHC RDW Plt Count MPV Immature Gran % (Auto) Neut % (Auto) Lymph % (Auto) [place] % (Auto) Eos % (Auto) Baso % (Auto) Lymph # (Auto) [place] # (Auto) Eos # (Auto) Baso # (Auto) Abs Immat Gran (auto) Absolute Neuts (auto) Absolute Nucleated RBC Nucleated RBC % (auto) D-Dimer High Sensitivty Sodium 141 Potassium 4.6 Chloride 106 Carbon Dioxide 26 Anion Gap 14 BUN 15 Creatinine 0.84 Estim Creat Clear Calc 90.8 Estimated GFR > 60 Random Glucose 88 Estimat Average Glucose Hemoglobin A1c % Calcium 9.3 Magnesium 2.1 Total Bilirubin 0.5 Direct Bilirubin 0.2 AST 35 ALT 42 H Alkaline Phosphatase 74 Troponin I High Sens < 3.5 < 3.5 B-Natriuretic Peptide 24 Total Protein 7.1 Albumin 4.3 Triglycerides Cholesterol LDL Cholesterol, Calc HDL Cholesterol Influenza Type A (PCR) Influenza Type B (PCR) RSV RNA Qual (PCR) SARS-CoV-2 RNA (RT-PCR) 02/04/21 02/04/21 07:40 07:41 WBC RBC Hgb Hct MCV MCH MCHC RDW Plt Count MPV Immature Gran % (Auto) Neut % (Auto) Lymph % (Auto) [place] % (Auto) Eos % (Auto) Baso % (Auto) Lymph # (Auto) [place] # (Auto) Eos # (Auto) Baso # (Auto) Abs Immat Gran (auto) Absolute Neuts (auto) Absolute Nucleated RBC Nucleated RBC % (auto) D-Dimer High Sensitivty Sodium Potassium Chloride Carbon Dioxide Anion Gap BUN Creatinine Estim Creat Clear Calc Estimated GFR Random Glucose Estimat Average Glucose 114 Hemoglobin A1c % 5.6 Calcium Magnesium Total Bilirubin Direct Bilirubin AST ALT Alkaline Phosphatase Troponin I High Sens B-Natriuretic Peptide Total Protein Albumin Triglycerides 111 Cholesterol 257 LDL Cholesterol, Calc 190 HDL Cholesterol 45 Influenza Type A (PCR) Influenza Type B (PCR) RSV RNA Qual (PCR) SARS-CoV-2 RNA (RT-PCR) Imaging Radiologist's impression: Impressions Chest X-Ray 02/03/21 14:00 IMPRESSION: No significant acute parenchymal disease. Assessment and Plan (1) Chest pain: Qualifiers: Chest pain type: precordial pain Qualified Code(s): R07.2 - Precordial pain Status: Acute Patient with sudden-onset chest discomfort prior history of coronary artery disease. Likelihood of acute coronary syndrome is low. His response to nitroglycerin most likely, pain related to esophageal spasm. This is not resolved. His troponins are negative an EKG shows no ischemic changes. Patient require outpatient workup for his exertional shortness of breath which could represent progressive coronary artery disease given untreated lipids with a myocardial perfusion imaging. Also require an echocardiogram to of LV systolic and diastolic function which also can be done as an outpatient. Her patient's is if this can be done as an inpatient while he is here. (2) CAD (coronary artery disease): Status: Acute CAD with remote myocardial infarction with premature atherosclerosis. Importance of good medical therapy was discussed. Blood pressure borderline elevated. Advised to monitor blood pressure at home and maintain a log. Low-salt diet was discussed. Continue lifelong aspirin therapy. Also should be on a statin therapy and would consider restarting atorvastatin 40 mg daily. Target goal LDL less than 70 mg/dL. Outpatient workup as above. Patient can be discharged home from my perspective. Procedures Date of Service Date of Service: 02/04/21
--- NOTE | 2021-02-04 10:29 | PC.NURSE ---
Addendum entered by Lisset Neely 02/04/21 10:30: error Echo scheduled for 1400, not stress test Original Note: Pt is alert/orientede. Denies any cp or associated sx this AM. Seen by hospitalist and cardiology, plan for stress test at 1400
--- NOTE | 2021-02-04 13:52 | PM.DS ---
DS: Providers Provider Date of Service: 02/04/21 Date of admission: 02/03/21 18:41 Primary care physician: Jasmyn Bearden MD Consults: 02/03/21 17:56 Consult to Cardiology Routine Consulting Provider: Herminio Lin Reason for consultation: chest pain DS: Diagnosis Discharge Diagnosis (1) Chest pain: Status: Acute (2) CAD (coronary artery disease): Status: Acute (3) Dyslipidemia: Status: Acute (4) Ischemic cardiomyopathy: Status: Acute DS: Summary Hospital Course Hospital Course: from my admission H+P, 02/03/21: Mr Davis is a 65 year-old non-smoking male with history of posterior wall WI in his 40s treated medically, POP on CPAP, severe asthma treated with dupilumab, and diffuse esophageal spasm on diltiazem in the past, who was in his usual state of health until he was awakened from sleep around midnight last night by chest discomfort and shortness of breath.? The chest discomfort was burning in nature like my chest was on fire but not associated with diaphoresis and not radiating.? It was moderate in intensity and not at all like the chrushing chest pain he experienced with his prior WI, but also not at all like his episodes of esophageal spasm.? No acid reflux, though he has suffered this in the past.? He was able to go back to sleep and when he next awoke around 3am, the pain was around 3/10 in intensity.? He had a dull ache all day in his chest and decided to present to the ED, where he was given nitroglycerin with near-complete relief of his pain.? 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 He last had a stress test some 5 years ago.? 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 In the ED, EKG showed normal sinus rhythm with no ischemic changes.? D-dimer was 216.? High-sensitivity troponin-I was negative twice.? BNP was 24.? CXR was negative for acute disease. The patient was admitted to the hospitalist service on telemetry. Chest discomfort resolved completely. Cardiology was consulted. Echocardiogram showed normal LVEF, grade 1 diastolic dysfunction, and regional wall motion abnormalities consistent with history of posterior WI. LDL was markedly elevated and he was started on high-intensity statin. He will follow-up with his parachute accessories attacher as an outpatient for stress testing. He should also see a pile driver operator helper to help manage his severe allergic asthma. Time Spent with Patient Time attestation: Total time spent providing and/or coordinating discharge services: Discharge coordination time: Less than 30 minutes Quality: Stroke Does the patient have a stroke diagnosis?: No Physical Exam Vital Signs: Vital Signs: Last Vital Signs Temp 97.6 F 02/04/21 01:08 Pulse 70 02/04/21 09:36 Resp 16 02/04/21 09:36 BP 142/79 H 02/04/21 09:36 Pulse Ox 95 02/04/21 09:36 BMI result Body Mass Index 26.7 Gen: in no acute distress HEENT: sclera anicteric, moist mucus membranes Neck: supple Lungs: clear to auscultation bilaterally Heart: regular rate and rhythm, no murmurs Abd: soft, non-tender, non-distended Ext: no edema Skin: warm/well-perfused Neuro: alert and oriented x3, no focal findings Psych: appropriate affect DS: Data Data Completed and Pending Completed studies during hospitalization [Text1]: Laboratory Results WBC 6.8 X10*3/uL (4.8-10.8) 02/03/21 14:26 RBC 5.19 X10*6/uL (4.60-5.80) 02/03/21 14:26 Hgb 15.1 g/dl (14.0-18.0) 02/03/21 14:26 Hct 45.8 % (42.0-52.0) 02/03/21 14:26 MCV 88.2 fL (80.0-98.0) 02/03/21 14:26 MCH 29.1 pg (27.0-33.0) 02/03/21 14:26 MCHC 33.0 g/dl (31.0-36.0) 02/03/21 14:26 RDW 12.8 % (11.0-16.0) 02/03/21 14:26 Plt Count 222 X10*3/uL (160-400) 02/03/21 14:26 MPV 10.3 fL (9.4-12.4) 02/03/21 14:26 Immature Gran % (Auto) 0.4 % (0.0-0.4) 02/03/21 14: Neut % (Auto) 72.6 % (45-73) 02/03/21 14:26 Lymph % (Auto) 15.8 % (20-40) L 02/03/21 14:26 [place] % (Auto) 6.4 % (2-11) 02/03/21 14: Eos % (Auto) 4.2 % (0-4) H 02/03/21 14:26 Baso % (Auto) 0.6 % (0-2) 02/03/21 14:26 Lymph # (Auto) 1.1 X10*3/uL (1.2-4.9) L 02/03/21 14:26 [place] # (Auto) 0.4 X10*3/uL (0.1-1.2) 02/03/21 14: Eos # (Auto) 0.3 X10*3/uL (0.0-0.4) 02/03/21 14: Baso # (Auto) 0.0 X10*3/uL (0.0-0.2) 02/03/21 14:26 Abs Immat Gran (auto) 0.03 X10*3/uL (0.00-0.03) 02/03/21 14: Absolute Neuts (auto) 5.0 x10*3/uL (2.0-8.3) 02/03/21 14: Absolute Nucleated RBC 0.000 X10*3/uL (0.0-0.012) 02/03/21 14: Nucleated RBC % (auto) 0.0 /100WBC (0.0-0.2) 02/03/21 14:26 D-Dimer High Sensitivty 216 NG/ML 02/03/21 14:26 Sodium 141 mmol/L (135-145) 02/03/21 14:26 Potassium 4.6 mmol/L (3.3-5.1) 02/03/21 14: Chloride 106 mmol/L (96-108) 02/03/21 14:26 Carbon Dioxide 26 mmol/L (22-29) 02/03/21 14:26 Anion Gap 14 (12-20) 02/03/21 14:26 BUN 15 mg/dL (9-16) 02/03/21 14:26 Creatinine 0.84 mg/dL (0.5-1.4) 02/03/21 14:26 Estim Creat Clear Calc 90.8 02/03/21 14:26 Estimated GFR > 60 02/03/21 14:26 Random Glucose 88 mg/dL (60-115) 02/03/21 14:26 Estimat Average Glucose 114 mg/dL 02/04/21 07:40 Hemoglobin A1c % 5.6 % 02/04/21 07:40 Calcium 9.3 mg/dL (8.4-10.2) 02/03/21 14:26 Magnesium 2.1 mg/dL (1.6-2.6) 02/03/21 14:26 Total Bilirubin 0.5 mg/dL (0.0-1.0) 02/03/21 14:26 Direct Bilirubin 0.2 mg/dL (0.0-0.5) 02/03/21 14:26 AST 35 U/L (5-37) 02/03/21 14:26 ALT 42 U/L (0-40) H 02/03/21 14:26 Alkaline Phosphatase 74 U/L (39-117) 02/03/21 14:26 Troponin I High Sens < 3.5 ng/L (<3.5-35.0) 02/03/21 16:44 B-Natriuretic Peptide 24 pg/mL (<100) 02/03/21 14:26 Total Protein 7.1 g/dL (6.5-8.0) 02/03/21 14:26 Albumin 4.3 g/dL (3.5-5.0) 02/03/21 14:26 Triglycerides 111 mg/dL 02/04/21 07:41 Cholesterol 257 mg/dL 02/04/21 07:41 LDL Cholesterol, Calc 190 mg/dl 02/04/21 07:41 HDL Cholesterol 45 mg/dL 02/04/21 07:41 Influenza Type A (PCR) NEGATIVE (Negative) 02/03/21 14:06 Influenza Type B (PCR) NEGATIVE (Negative) 02/03/21 14:06 RSV RNA Qual (PCR) NEGATIVE (Negative) 02/03/21 14:06 SARS-CoV-2 RNA (RT-PCR) NEGATIVE (Negative) 02/03/21 14:06 Impressions Chest X-Ray 02/03/21 14:00 IMPRESSION: No significant acute parenchymal disease. TTE 02/04/21 1. Normal LV systolic function with grade 1 diastolic dysfunction with underlying wall motion abnormality suggestive of CAD 2. Normal cardiac valvular Doppler 3. Normal RV systolic pressure 4. No pericardial effusion Discharge Plan Discharge Patient Disposition: Home, Self-Care Discharge Diagnosis: chest pain, dyslipidemia Referrals: Jasmyn Bearden MD [Primary Care Provider] - 1 Week Herminio Lin MD [Physician] - 2 Weeks Discharge Medications: New aspirin 81 mg Tablet,Chewable 81 mg PO DAILY Qty: 30 RF: 0 atorvastatin 80 mg Tablet 80 mg PO BEDTIME Qty: 30 RF: 0 Continued multivitamin Tablet 1 tab PO DAILY RF: 0 ascorbic acid (vitamin C) [Vitamin C] 500 mg Tablet 500 mg PO DAILY RF: 0 tadalafil 5 mg Tablet 5 mg PO DAILY RF: 0 cholecalciferol (vitamin D3) [Vitamin D3] 50 mcg (2,000 unit) Capsule 2,000 unit PO DAILY RF: 0 Dupixent Syringe 300 mg/2 mL syringe 300 mg subcut Q2W RF: 0 finasteride 5 mg tablet 1 tab PO DAILY RF: 0 Diet: low salt diet Activity on Discharge: As tolerated Stand Alone Forms: Patient Portal Discharge page Care Plan Goals: relief of chest pain, prevention of cardiovascular disease Health Concerns: chest pain, dyslipidemia Plan of Treatment: follow up with [facility] [place] Cardiology within 2 weeks for stress testing take aspirin 81 mg daily plus atorvastatin 80 mg daily see your primary care doctor in 1-2 weeks and ask for referral to pile driver operator helper to manage your asthma Assessment: see Discharge Summary
[2021-02-06 02:55] LABS: LDL Cholesterol Direct 197 mg/dL (<100)
== END 2021-02-04 16:59 | disposition home or self-care (01) ==
LOC: HO.ED 16:09 → HO.EDOVER 18:57
PROVIDERS: Admitting Provider Family Medicine; Emergency Provider Emergency Medicine; PCP Internal Medicine; Visit Provider Family Medicine
DX: R07.2 Precordial pain (principal); I25.10 Atherosclerotic heart disease of native coronary artery without angina pectoris; I10 Essential (primary) hypertension; E78.5 Hyperlipidemia, unspecified; I25.5 Ischemic cardiomyopathy; I25.2 Old myocardial infarction; K22.4 Dyskinesia of esophagus; J45.50 Severe persistent asthma, uncomplicated; G47.33 Obstructive sleep apnea (adult) (pediatric); Z20.822 Contact with and (suspected) exposure to COVID-19; Z99.89 Dependence on other enabling machines and devices; Z79.899 Other long term (current) drug therapy
CPT/HCPCS: 0241U; 36415; 71045; 80048; 80061; 80076; 83036; 83721; 83735; 83880; 84484; 85025; 85379; 93005; 93306; 96361; 96372; 96374; 99219; 99285; J1650

== ENCOUNTER → 2021-02-09 09:26 | Outpatient (REF) | payer OTHER, SELFPAY ==
--- NOTE | ~2021-02-09 | NM_ITS ---
EXERCISE MYOCARDIAL PERFUSION STUDY INDICATION: Chest pain, assess for coronary disease and ischemia TECHNIQUE: The patient was brought in for an exercise perfusion study on 02/09/2021. Patient performed exercise as per Ole protocol and was injected 30 mCi of sestamibi once target heart rate was achieved. Images were obtained using the SPECT gamma camera interlaced with the gating device. Images were obtained in supine position. Resting perfusion study was performed on 02/11/2021. Patient was administered 30 mCi of sestamibi intravenously at rest. Images were then obtained in supine position. Total DLP 85mGy-cm. Images were processed with the software and compared side to side in short axis, horizontal long axis and vertical long axis views. FINDINGS: Raw images were reviewed. The stress perfusion study showed diminished tracer uptake along the basal inferior wall, adjacent parts of inferior septum, inferolateral wall, basal lateral wall. There is some improvement with CT attrition correction in the inferior wall, but the lateral wall in the basal aspect still has diminished perfusion. The gated study shows normal LV systolic function with calculated LVEF of 65%. LV cavity is normal in size. The gated study shows diminished contractility in the basal lateral wall, basal inferior wall and adjacent part of septum. Resting study shows diminished tracer uptake in the basal inferior wall, adjacent parts of inferior septum, inferolateral wall, parts of lateral wall. There is improvement in the inferior wall with CT attenuation correction but the basal septum and lateral wall still don't look adequately perfused. Gating at rest reveals diminished contractility in the basal inferior wall, septum, inferolateral wall and ejection fraction of 57%. The findings are consistent with fixed perfusion defect in the basal inferior wall, adjacent inferior septum, inferolateral wall and lateral wall. Slight reversibility in the lateral wall only. NM/NM cardiolite stress test IMPRESSION: 1. Myocardial perfusion imaging study shows prior nontransmural infarct of the basal inferior wall, adjacent inferior septum, inferolateral wall and parts of lateral wall. Stephanie-infarct ischemia in the lateral wall. 2. Gated LVEF is 65% during stress and 57% during rest. 3. Transient ischemic dilatation not present. EKG component of the test reported separately.
--- NOTE | 2021-02-09 09:28 | CA_ITS ---
Acquisition Time: 2021-02-09 09:53:00 Total Exercise Time: 00:06:10 Test Indications: CP Medications: SEE CHART Protocol: JAEL Max HR: 112 BPM 73% of Pred: 153 BPM Max BP: 150/078 mmHG Max Work Load: 7.2 METS Exercise stress test with exercise 6 min 10 sec of Jael protocol, achieing 72% MPHR, with moderate shortness of breath and anterior chest tightness 5/10, with normotensive response to exercise, with isolated PVC, with EKG changes inferorly with STelevation aVR suggestive of ischemia however some artifact is present making interpretion more challenging. Once in recovery his EKG changes resolved and chest pressure gradually improved and was gone by 5 minutes recovery. MIBI injection was given at < 85% MPHR due to exertion chest discomfort and EKG changes. Nuclear images pending. Test reviewed with Dr Quiroz. Referred By: Herminio Lin Overread By: NEERU HERRERA
== END ==
LOC: HO.CARD 09:26
PROVIDERS: PCP Internal Medicine; Visit Provider Internal Medicine Cardiovascular Disease
DX: R07.2 Precordial pain (principal); I25.10 Atherosclerotic heart disease of native coronary artery without angina pectoris
CPT/HCPCS: 78452; 93017; A9500

== ENCOUNTER 2021-02-15 12:48 | Outpatient (REF) | payer OTHER, SELFPAY ==
[2021-02-15 16:38] LABS: COVID-19 Test Negative (Negative); IDNOW Serial# 9DD0AD1C
== END 2021-02-15 12:49 | disposition home or self-care (01) ==
LOC: HO.LAB 12:48
PROVIDERS: Emergency Medicine; Visit Provider Internal Medicine
DX: Z20.822 Contact with and (suspected) exposure to COVID-19 (principal)
CPT/HCPCS: 36415; 87635

== ENCOUNTER 2021-04-09 17:34 | Outpatient (REF) | payer OTHER, SELFPAY ==
[2021-04-09 19:03] LABS: Influenza A PCR NEGATIVE (Negative); Influenza B PCR NEGATIVE (Negative); Resp Syncy Virus RNA Qual PCR NEGATIVE (Negative); SARS COV2 PCR INHOUSE POSITIVE (Negative)
== END 2021-04-09 17:35 | disposition home or self-care (01) ==
LOC: HO.LAB 17:34
PROVIDERS: Visit Provider Emergency Medicine
DX: Z20.822 Contact with and (suspected) exposure to COVID-19 (principal)
CPT/HCPCS: 0241U